=== PATIENT | male | born 1960 | race Caucasian/White ===

== ENCOUNTER 2016-09-08 18:49 | Emergency (ER) | payer OTHER, MEDICAID ==
[2016-09-08 18:56] VITALS: BP 154/92
--- NOTE | 2016-09-08 20:16 | UC ---
UC General HPI - HPI Summary HPI Summary: complaint of intermittent fever that started 09/05/16 and body aches 2 days ago found a red rash on his right thigh that has become red and painful fever 100.3-101 took some ibuprofen with relief denies N/V/D, headache, sore throat , dysuria - History of Current Complaint Chief Complaint: UCGeneralIllness Stated Complaint: FEVER Time Seen by Provider: 09/08/16 20:02 Hx Obtained From: Patient - Allergy/Home Medications Allergies/Adverse Reactions: Allergies Allergy/AdvReac Type Severity Reaction Status Date / Time No Known Allergies Allergy Verified 09/08/16 18:56 Home Medications: Home Medications Cat's Claw (Uncaria Tomentosa) [Cats Claw] 1,000 mg PO DAILY 09/08/16 [History Confirmed 09/08/16] [place]-3 Fatty Acids [Fish Oil 1200 mg] 1 cap PO DAILY 09/08/16 [History Confirmed 09/08/16] PMH/Surg Hx/FS Hx/Imm Hx Previously Healthy: Yes - chronic back pain Cardiovascular History: Cardiac Disease, Myocardial Infarction - Surgical History Surgical History: Yes Surgery Procedure, Year, and Place: Cardiac stents x 3. - Family History Known Family History: Negative: Cardiac Disease, Hypertension, Diabetes - Social History Occupation: Employed Full-time Lives: With Family Alcohol Use: None Substance Use Type: None Smoking Status (MU): Former Smoker Review of Systems Constitutional: Fever Skin: Rash Eyes: Negative ENT: Negative Respiratory: Negative Cardiovascular: Negative Gastrointestinal: Negative Genitourinary: Negative Motor: Negative Neurovascular: Negative Musculoskeletal: Negative Neurological: Negative Psychological: Negative All Other Systems Reviewed And Are Negative: Yes Physical Exam Triage Information Reviewed: Yes Appearance: No Pain Distress, Well-Nourished Vital Signs: Initial Vital Signs Temp 100.5 F 09/08/16 18:52 Pulse 99 09/08/16 18:52 Resp 18 09/08/16 18:52 BP 154/92 09/08/16 18:52 Pulse Ox 99 09/08/16 18:52 Vital Signs Reviewed: Yes Eyes: Positive: Conjunctiva Clear ENT: Positive: Pharynx normal, TMs normal Neck: Positive: No Lymphadenopathy Respiratory: Positive: Lungs clear, Normal breath sounds, No respiratory distress Cardiovascular: Positive: RRR, No Murmur, Pulses Normal, Brisk Capillary Refill Abdomen Description: Positive: Nontender, Soft Bowel Sounds: Positive: Present Musculoskeletal Exam: Normal Musculoskeletal: Positive: No Edema Neurological: Positive: Alert Psychological Exam: Normal Skin: Positive: rashes - 11x12 cm erythema migrans Course/Dx - Differential Dx - Multi-Symptom Differential Diagnoses: Other - lyme disease, erythema migrans, febrile illness Provider Diagnoses: erythema migrans, elevated blood pressure Discharge - Discharge Plan Condition: Stable Disposition: HOME Prescriptions: DOXYcycline CAP(*) [DOXYcycline 100MG CAP(*)] 100 mg PO BID #42 cap Patient Education Materials: Lyme Disease (ED) Referrals: Darline Lim MD [Medical Doctor] - Additional Instructions: Please start antibiotic as directed Increase fluids and rest Take acetaminophen or ibuprofen for fever or pain Please review your discharge instructions. If your symptoms do not improve please call your primary care provider or return to urgent care. Your blood pressure is elevated. Please contact your primary care provider within 1 -4 weeks for further evaluation
== END 2016-09-08 20:38 | disposition home or self-care (01) ==
LOC: UCEAST 18:49
DX: A26.0 Cutaneous erysipeloid (principal); R03.0 Elevated blood-pressure reading, without diagnosis of hypertension; Z87.891 Personal history of nicotine dependence
CPT/HCPCS: 99212; G0463